=== PATIENT | male | born 1970 | race Caucasian/White ===

== ENCOUNTER 2016-12-30 23:39 | Emergency (ER) | payer BC ==
--- NOTE | ~2016-12-30 | EKG ---
PATIENT: ARMIDA MORENO UNIT #: [id number] Ventricular Rate: 127 BPM Atrial Rate: 127 BPM P-R Interval: 156 ms QRS Duration: 82 ms Q-T Interval: 300 ms QTC Calculation(Bezet): 436 ms P [place]: 44 degrees Calculated R [place]: 16 degrees Calculated T [place]: 33 degrees Diagnosis Line: Sinus tachycardia Diagnosis Line: Otherwise normal ECG Diagnosis Line: When compared with ECG of 24-NOV-2014 12:53, Diagnosis Line: No significant change was found Diagnosis Line: Confirmed by NICOL LI MD ([id number]) on 01/03/2017 Diagnosis Line: 5:35:06 PM INTERPRETING MD: GUILLERMO MCMANUS
--- NOTE | ~2016-12-30 | CR72 ---
[facility]. [facility] A Service of [facility] RADIOLOGY TEXT RESULTS PATIENT: ARMIDA MORENO LOCATION: SED : 70 UNIT #: [id number] AGE: [address]: Efren Ibarra MD SEX: M ORDER DR: [id number] [place] [id number] E MR#: [id number] Acc #: [id number] NAME: RAMIDA MORENO : 1970 SEX: M STUDY DATE/TIME: 12/30/2016 UNIT: SED ROOM: STUDY DESCRIPTION: CR Chest Single View Portable Attending Physician: Efren Ibarra M.D. Ordering Physician: Efern Ibarra M.D. MEDICAL IMAGING REPORT This report is preliminary unless electronic signature is present. EXAM Portable chest 12/30 23:18 INDICATIONS Hypertension and heart racing tonight. FINDINGS AP portable chest compared with 11/24/2014. The cardiac and mediastinal contours are normal. The lungs are emphysematous but clear. No pneumothorax is seen. Bullous changes noted right upper lobe. IMPRESSION Emphysema with bullous change in the right upper lobe. No acute findings in the chest. Dictated by... Yemi Quiroz Jr., M.D. THIS IS AN ELECTRONICALLY VERIFIED REPORT Yemi Quiroz Jr., M.D. at 01/01/2017 9:58 PM RLK/florencia TD: 12/31/2016 11:59 JOB #: [id number] MEDICAL IMAGING REPORT
--- NOTE | ~2016-12-30 | CT16 ---
[facility] A Service [facility] RADIOLOGY TEXT RESULTS PATIENT: ARMIDA MORENO LOCATION: SED : 70 UNIT #: [id number] AGE: [address]: Efren Ibarra MD SEX: M ORDER DR: [id number] [place] [id number] E MR#: [id number] Acc #: [id number] NAME: ARMIDA MORENO : 1970 SEX: M STUDY DATE/TIME: 12/31/2016 0219 UNIT: SED ROOM: STUDY DESCRIPTION: CT Angio Chest for PE Attending Physician: Efren Ibarra M.D. Ordering Physician: Efren Ibarra M.D. MEDICAL IMAGING REPORT This report is preliminary unless electronic signature is present. EXAM Chest CTA 12/31/2016 at 02:19 INDICATIONS Heart palpitations and chest tightness that started tonight. TECHNIQUE Axial images were obtained through the chest following IV contrast administration. 3-D reformats were obtained. This CT exam was performed with one or more of the following radiation dose reduction techniques: automatic exposure control, adjustment of mA and/or kV according to patient size, and iterative reconstruction. COMPARISON STUDIES No comparison CT. FINDINGS There is no pulmonary embolism or aortic dissection. There is no pleural or pericardial effusion. There is no adenopathy. There is emphysema with marked bullous change in the right upper lobe. There is dependent atelectasis in both lower lobes. Lungs are otherwise clear. There is no pneumothorax. The upper abdomen demonstrates borderline enlargement of the spleen. IMPRESSION 1. No pulmonary embolism or aortic dissection is seen. 2. Bullous emphysema. No active disease in the chest. 3. Borderline splenomegaly. Dictated by... Yemi Quiroz Jr., M.D. [facility] A Service of [facility] RADIOLOGY TEXT RESULTS PATIENT: ARMIDA MORENO LOCATION: SED : 70 UNIT #: [id number] AGE: [address]: Efren Ibarra MD SEX: M ORDER DR: THIS IS AN ELECTRONICALLY VERIFIED REPORT Yemi Quiroz Jr., M.D. at 01/01/2017 6:40 AM GUERITA/rebel TD: 12/31/2016 12:42 JOB #: [id number] MEDICAL IMAGING REPORT
[2016-12-30 23:16] LABS: BASOPHIL# 0.1 X10e3 (0-0.3); EOSINOPHIL# 0.1 X10e3 (0-0.7); EOSINOPHIL% 1.1 % (0.0-7.0); HEMATOCRIT 40.9 % (38.0-50.0); HEMOGLOBIN 14.4 gm/dL (13.0-16.0); LYMPHOCYTE# 1.3 X10e3 (1.0-3.5); LYMPHOCYTE% 17.6 % (17.0-45.0); MEAN CELL VOLUME 82.8 FL (83-96); MEAN CORPUSCULAR HEMOGLOBIN 29.1 PG (28-34); MEAN CORPUSCULAR HGB CONC 35.2 g/dL (30-36); MONOCYTE# 0.5 X10e3 (0-1.0); MONOCYTE% 7.3 % (3.0-12.0); NEUTROPHIL# 5.2 X10e3 (1.5-7.1); PLATELET COUNT 172 X10e3 (140-420); RED BLOOD COUNT 4.95 X10e (3.90-5.60); RED CELL DISTRIBUTION WIDTH 14.9 % (11.0-15.5); WHITE BLOOD COUNT 7.2 X10e3 (4.0-10.5)
[2016-12-30 23:18] LABS: DIFF IND NO
[2016-12-30 23:31] LABS: ALBUMIN SERUM 4.4 g/dL (3.5-5.0); ALKALINE PHOSPHATASE 110 U/L (32-92); ALT (SGPT) 34 U/L (10-40); AST (SGOT) 23 U/L (10-42); BILIRUBIN,TOTAL 0.4 mg/dL (0.2-2.0); BLOOD UREA NITROGEN 10 mg/dL (9-23); BUN/CREATININE RATIO 14.28; CALCIUM SERUM 8.9 mg/dL (8.4-10.2); CARBON DIOXIDE 28 mmol/L (22-31); CHLORIDE 99 mmol/L (100-111); CREATININE SERUM 0.7 mg/dL (0.6-1.4); GLOM FILT RATE Estimated ABOVE60 mL/min (>60); POTASSIUM 3.8 mmol/L (3.5-5.1); SODIUM 133 mmol/L (135-145)
[2016-12-30 23:32] LABS: BILIRUBIN,INDIRECT 0.4 mg/dL (0.0-0.9); GLUCOSE FASTING 93 mg/dL (70-110)
[2016-12-30 23:37] LABS: POC - CKMB 1.4 ng/mL (0.0-7.9); POC - TROPONIN <0.05 ng/mL (<=0.05)
[~2016-12-30 23:39] MED LIST: NO MEDICATIONS
== END 2016-12-31 03:05 | disposition home or self-care (01) ==
LOC: SED 23:39
PROVIDERS: Emergency Medicine
DX: R00.0 Tachycardia, unspecified (principal); R00.2 Palpitations; I10 Essential (primary) hypertension; Z88.5 Allergy status to narcotic agent
CPT/HCPCS: 36415; 71010; 71275; 80048; 80076; 82553; 83874; 84443; 84484; 85025; 93005; 96360; 99284; Q9967